=== PATIENT | female | born 1940 | race Caucasian/White ===

== ENCOUNTER 2017-08-26 18:40 | Emergency (ER) | payer MEDICAID ==
[~2017-08-26] VITALS: Ht 167.6 cm; Wt 77.0 kg
[~2017-08-26 18:40] MED LIST: AMLO2.5T45 PO; ASPI-1159 PO; COR3 PO; Fluticasone Propionate BOTHNSTRLS; LEVO250T2 PO; LISI-650 PO
[2017-08-26 19:23] LABS: BASOPHILS % 0.7 % (0.0-2.0); EOSINOPHILS % 3.5 % (0.0-5.0); HEMATOCRIT. 37.9 % (36.0-48.0); HEMOGLOBIN. 13.1 g/dL (12.0-16.0); LYMPHOCYTES % 31.6 % (20.0-50.0); MEAN CORPUSCULAR HEMOGLOBIN 31.5 pg (28.0-32.0); MEAN CORPUSCULAR VOLUME 91.3 fL (81.0-99.0); MEAN PLATELET VOLUME 8.4 fl (7.4-10.4); MONOCYTES % 6.9 % (2.0-8.0); NEUTROPHILS % 57.3 % (40.0-76.0); PLATELET 243 x1000/uL (130-400); RED BLOOD CELL COUNT 4.16 mill/uL (4.2-5.4)
[2017-08-26 19:29] LABS: CHLORIDE 100 mEq/L (98-107)
[2017-08-26 19:34] LABS: PARTIAL THROMBOPLASTIN TIME 24.3 sec (23.4-31.0); PROTHROMBIN TIME 10.9 sec (9.4-11.6)
[2017-08-26 19:52] LABS: CLARITY URINE CLEAR (CLEAR); COLOR URINE YELLOW (YELLOW); KETONES URINE NEGATIVE (NEGATIVE); LEUKOCYTE ESTERASE URINE 3+ (NEGATIVE); NITRITE URINE NEGATIVE (NEGATIVE); OCCULT BLOOD URINE NEGATIVE (NEGATIVE); PROTEIN URINE NEGATIVE (NEGATIVE); UROBILINOGEN URINE 0.2 E.U./dL (0.2-1.0)
[2017-08-26] MEDS ORDERED: MECLIZINE 25MG TABLET PO NR (20:00)
[2017-08-26 21:55] VITALS: BP 160/70
== END 2017-08-26 21:57 | disposition home or self-care (01) ==
LOC: ER 21:03
DX: N39.0 Urinary tract infection, site not specified (principal); E11.65 Type 2 diabetes mellitus with hyperglycemia; R42 Dizziness and giddiness; H53.8 Other visual disturbances; I10 Essential (primary) hypertension; R20.2 Paresthesia of skin; Z79.82 Long term (current) use of aspirin; R79.1 Abnormal coagulation profile
CPT/HCPCS: 36415; 70450; 71045; 80053; 81003; 83690; 83880; 84484; 85025; 85610; 85730; 87086; 93005; 99285; J8597

== ENCOUNTER 2018-10-30 15:54 | Inpatient (IN) | payer MEDICAID ==
[~2018-10-30] VITALS: Ht 167.6 cm; Wt 80.0 kg
[~2018-10-30 15:54] MED LIST changes: -ASPI-1159 PO; +ASPI-1393 PO
[2018-10-30] MEDS ORDERED: MORPHINE SULFATE 4 MG/ML CPJ (NOT FOR IM USE) IV STA (17:37)
[2018-10-30] MEDS ORDERED: SODIUM CHLORIDE 0.9% 1,000 ML IV ONE (17:37)
[2018-10-30] MEDS ORDERED: FAMOTIDINE 20MG/2ML VIAL IV STA (17:37)
[2018-10-30] MEDS ORDERED: ONDANSETRON HCL 4MG/2ML INJ IV STA (17:37)
[2018-10-30] MEDS ORDERED: HYDRALAZINE 20MG/ML VIAL IV ONE (17:45)
[2018-10-30 18:27] LABS: BASOPHILS % 0.7 % (0.0-2.0); EOSINOPHILS % 1.2 % (0.0-5.0); HEMATOCRIT. 34.1 % (36.0-48.0); HEMOGLOBIN. 12.1 g/dL (12.0-16.0); LYMPHOCYTES % 23.2 % (20.0-50.0); MEAN CORPUSCULAR HEMOGLOBIN 32.3 pg (28.0-32.0); MEAN PLATELET VOLUME 8.4 fl (7.4-10.4); MONOCYTES % 7.7 % (2.0-8.0); NEUTROPHILS % 67.2 % (40.0-76.0); PLATELET 239 x1000/uL (130-400); RED BLOOD CELL COUNT 3.75 mill/uL (4.2-5.4); RED CELL DISTRIBUTION WIDTH 12.5 % (11.6-14.6)
[2018-10-30 18:34] LABS: INR 1.1; PROTHROMBIN TIME 11.3 sec (9.6-11.0)
[2018-10-30 18:38] LABS: CHLORIDE 88 mEq/L (98-107)
[2018-10-30 18:42] LABS: ETHANOL BLOOD < 10 mg/dL
[2018-10-30 20:39] LABS: CLARITY URINE CLEAR (CLEAR); COLOR URINE YELLOW (YELLOW); KETONES URINE NEGATIVE (NEGATIVE); LEUKOCYTE ESTERASE URINE NEGATIVE (NEGATIVE); NITRITE URINE NEGATIVE (NEGATIVE); OCCULT BLOOD URINE NEGATIVE (NEGATIVE); PH URINE 5.5 (4.5-8.0); PROTEIN URINE NEGATIVE (NEGATIVE); SPECIFIC GRAVITY URINE 1.007 (1.005-1.030); UROBILINOGEN URINE 0.2 E.U./dL (0.2-1.0)
[2018-10-30] MEDS ORDERED: ONDANSETRON HCL 4MG/2ML INJ IV ONE (20:45)
[2018-10-30 21:43] VITALS: BP 151/62
[2018-10-30] MEDS ORDERED: DEXTROSE 50% WATER 50ML SYRINGE IV PRN (22:15)
[2018-10-30] MEDS ORDERED: HYDROCODONE/ACETAMINOPHEN 5/325MG TABLET PO PRN (22:15)
[2018-10-30 22:30] VITALS: BP 151/62
[2018-10-30] MEDS ORDERED: GLIP10TA10 PO (22:57)
[2018-10-30] MEDS ORDERED: LOSA1TAB37 PO ×2 (22:57)
[2018-10-30] MEDS ORDERED: METF-816 PO (22:57)
[2018-10-30] MEDS ORDERED: SIMV40TA5 PO (22:57)
[2018-10-31] VITALS (8 sets, daily range): BP systolic 129–193; BP diastolic 54–93
[2018-10-31 00:49] LABS: CREATINE KINASE MB FRACTION 2.8 ng/mL (0.5-3.6)
[2018-10-31] MEDS: BLOOD SUGAR DIAGNOSTIC STRIP TEST SCH ×4 (06:29→21:14)
[2018-10-31] MEDS: INSULIN LISPRO 100 UNITS/ML SUBCUT SCH ×4 (06:30→21:13)
[2018-10-31] MEDS: ENOXAPARIN 40MG/0.4ML SYR SUBCUT SCH (09:04)
[2018-10-31] MEDS: ASPIRIN 81MG TABLET PO SCH (09:04)
[2018-10-31] MEDS: LOSARTAN POTASSIUM 100 MG TABLET PO SCH (15:18)
[2018-10-31] MEDS: CLONIDINE 0.1MG TABLET PO PRN (16:39)
[2018-10-31] MEDS: METFORMIN HCL 500MG TABLET PO SCH (16:39)
[2018-11-01] VITALS: BP_SYST 126; BP_SYST 140; BP_DIAS 67; BP_DIAS 79
[2018-11-01 04:00] VITALS: BP 130/71
[2018-11-01] MEDS: BLOOD SUGAR DIAGNOSTIC STRIP TEST SCH ×3 (05:22→17:07)
[2018-11-01] MEDS: INSULIN LISPRO 100 UNITS/ML SUBCUT SCH ×3 (06:26→18:09)
[2018-11-01] MEDS: METFORMIN HCL 500MG TABLET PO SCH ×2 (06:26→18:09)
[2018-11-01 08:00] VITALS: BP 148/65
[2018-11-01] MEDS: LOSARTAN POTASSIUM 100 MG TABLET PO SCH (09:23)
[2018-11-01] MEDS: ENOXAPARIN 40MG/0.4ML SYR SUBCUT SCH (09:23)
[2018-11-01] MEDS: ASPIRIN 81MG TABLET PO SCH (09:23)
[2018-11-01 12:00] VITALS: BP 171/71
[2018-11-01] MEDS: CLONIDINE 0.1MG TABLET PO PRN (12:11)
[2018-11-01 16:00] VITALS: BP 118/61
[2018-11-01 18:46] VITALS: BP 118/61
[2018-11-05 04:15] LABS: OVA & PARASITE EXAM Final report (.)
== END 2018-11-01 19:00 | disposition home or self-care (01) | DRG 249 ==
LOC: ER 15:54 → EDBEDREQ 20:36 → 5WST 20:43 → EDBEDREQTM 20:50 → EDBEDREQ 20:50 → ENRESERV 21:07
PROVIDERS: ADMIT Internal Medicine; ATTEND Internal Medicine
DX: A08.4 Viral intestinal infection, unspecified (principal); E11.65 Type 2 diabetes mellitus with hyperglycemia; I10 Essential (primary) hypertension; E66.9 Obesity, unspecified; Z68.28 Body mass index [BMI] 28.0-28.9, adult; Z79.899 Other long term (current) drug therapy; Z79.82 Long term (current) use of aspirin; Z79.84 Long term (current) use of oral hypoglycemic drugs
CPT/HCPCS: 36415; 71045; 74176; 80320; 82550; 82553; 82962; 83880; 84484; 87015; 87045; 87177; 87209; 87427; 87449; 87493; 89055; 93005; 93306; 96374; 96375; 99285; J0360; J1650; J1815; J2270; J2405; J3490; J7030; G0480

== ENCOUNTER 2022-09-21 19:46 | Emergency (ER) | payer MEDICAID ==
[~2022-09-21 19:46] MED LIST changes: -AMLO2.5T45 PO; -ASPI-1393 PO; +ASPI-1497 PO; -Fluticasone Propionate BOTHNSTRLS; +INSU100I28 SQ; +LANC1COM12 SUBCON; -LEVO250T2 PO; -LISI-650 PO; +LOSA1TAB37 PO; +SIMV-46 PO
== END 2022-09-21 22:29 | disposition left against medical advice (07) ==
LOC: ER 19:46
DX: Z76.0 Encounter for issue of repeat prescription (principal); Z53.21 Procedure and treatment not carried out due to patient leaving prior to being seen by health care provider
CPT/HCPCS: 99281

== ENCOUNTER 2022-12-20 13:17 | Emergency (ER) | payer OTHER ==
[~2022-12-20] VITALS: Ht 167.6 cm; Wt 66.0 kg
[2022-12-20 13:46] VITALS: BP 111/67; TEMP 100.3; O2SAT 95
[2022-12-20 13:47] VITALS: PULSE 80; RESP 16
[2022-12-20 14:25] LABS: BASOPHILS % 0.2 % (0.0-2.0); HEMATOCRIT. 35.5 % (36.0-48.0); HEMOGLOBIN. 11.9 g/dL (12.0-16.0); LYMPHOCYTES % 8.5 % (20.0-50.0); MEAN CORPUSCULAR HEMOGLOBIN 30.4 pg (28.0-32.0); MEAN CORPUSCULAR HGB CONC 33.6 g/dL (31.0-37.0); MEAN CORPUSCULAR VOLUME 90.6 fL (81.0-99.0); MEAN PLATELET VOLUME 8.7 fl (7.4-10.4); MONOCYTES % 4.7 % (2.0-8.0); NEUTROPHILS % 86.6 % (40.0-76.0); PLATELET 176 x1000/uL (130-400); RED BLOOD CELL COUNT 3.92 mill/uL (4.2-5.4); RED CELL DISTRIBUTION WIDTH 13.3 % (11.6-14.6); WHITE BLOOD COUNT 12.2 x1000/uL (4.5-11.0)
[2022-12-20 14:28] LABS: CHLORIDE 98 mEq/L (98-107); INDEX HEMOLYSI 1 (1-3); INDEX ICTERIC 1 (1-4); INDEX LIPEMIC 1 (1-3); POTASSIUM 4.2 mEq/L (3.5-5.1); SODIUM 130 mEq/L (136-145)
[2022-12-20 14:37] LABS: ALANINE AMINOTRANSFERASE 16 IU/L (13-61); ALBUMIN 3.2 g/dL (3.4-5.0); ASPARTATE AMINOTRANSFERASE 12 IU/L (15-37); BILIRUBIN TOTAL 1.2 mg/dL (0.1-1.0); CALCIUM 8.7 mg/dL (8.5-10.1); CARBON DIOXIDE 25 mEq/L (21-32); CREATININE 1.6 mg/dL (0.6-1.3); GLUCOSE 301 mg/dL (70-105); PROTEIN TOTAL 7.6 g/dL (6.0-8.3); UREA NITROGEN BLOOD 37 mg/dL (7-21)
[2022-12-20 17:24] LABS: TROPONIN I HIGH SENSITIVITY 18 ng/L (<54)
== END 2022-12-20 19:57 | disposition home or self-care (01) ==
LOC: ER 13:17
DX: R42 Dizziness and giddiness (principal); I10 Essential (primary) hypertension
CPT/HCPCS: 36415; 71045; 80053; 82962; 84484; 85025; 93005; 99285

== ENCOUNTER 2023-10-23 07:16 | Emergency (ER) | payer OTHER ==
[~2023-10-23] VITALS: Ht 167.6 cm; Wt 77.1 kg
[2023-10-23 07:30] VITALS: O2SAT 96
[2023-10-23 08:57] LABS: CHLORIDE 104 mEq/L (98-107); POTASSIUM 4.4 mEq/L (3.5-5.1); SODIUM 138 mEq/L (136-145)
[2023-10-23 08:58] LABS: CALCIUM 9.1 mg/dL (8.7-10.4); CARBON DIOXIDE 24 mEq/L (21-32)
[2023-10-23 09:01] LABS: BASOPHILS % 0.9 % (0.0-2.0); EOSINOPHILS % 5.1 % (0.0-5.0); HEMATOCRIT. 36.7 % (36.0-48.0); HEMOGLOBIN. 12.3 g/dL (12.0-16.0); LYMPHOCYTES % 26.5 % (20.0-50.0); MEAN CORPUSCULAR HEMOGLOBIN 31.5 pg (28.0-32.0); MEAN CORPUSCULAR HGB CONC 33.6 g/dL (31.0-37.0); MEAN CORPUSCULAR VOLUME 93.8 fL (81.0-99.0); MEAN PLATELET VOLUME 9.1 fl (7.4-10.4); MONOCYTES % 7.6 % (2.0-8.0); NEUTROPHILS % 59.9 % (40.0-76.0); PARTIAL THROMBOPLASTIN TIME 24.2 sec (23.4-31.0); PLATELET 193 x1000/uL (130-400); PROTHROMBIN TIME 10.9 sec (9.6-11.0); RED BLOOD CELL COUNT 3.92 mill/uL (4.2-5.4); RED CELL DISTRIBUTION WIDTH 11.9 % (11.6-14.6); WHITE BLOOD COUNT 5.7 x1000/uL (4.5-11.0)
[2023-10-23 09:03] LABS: CREATININE 1.6 mg/dL (0.6-1.0); GLUCOSE 287 mg/dL (70-105); UREA NITROGEN BLOOD 34 mg/dL (9-23)
[2023-10-23 09:04] LABS: TROPONIN I HIGH SENSITIVITY 6 ng/L (3.0-34)
[2023-10-23 09:26] LABS: CLARITY URINE CLEAR (CLEAR); COLOR URINE YELLOW (YELLOW); GLUCOSE URINE 3+ (NEGATIVE); KETONES URINE NEGATIVE (NEGATIVE); LEUKOCYTE ESTERASE URINE TRACE (NEGATIVE); NITRITE URINE NEGATIVE (NEGATIVE); OCCULT BLOOD URINE NEGATIVE (NEGATIVE); PH URINE 5.5 (4.5-8.0); PROTEIN URINE NEGATIVE (NEGATIVE); SPECIFIC GRAVITY URINE 1.024 (1.005-1.030); UROBILINOGEN URINE 0.2 E.U./dL (0.2-1.0)
[2023-10-23 09:33] LABS: BACTERIA URINE 1+; RBC URINE 0-2 /hpf (0-2); SQUAMOUS EPITHELIAL CELL URINE 1+ /lpf (RARE/1+); WBC URINE 15-25 /hpf (0-2); YEAST URINE NONE SEEN
[2023-10-23 12:04] LABS: TROPONIN I HIGH SENSITIVITY 5 ng/L (3.0-34)
[2023-10-23] MEDS: SODIUM CHLORIDE 0.9% 1,000 ML IV ONE (12:56)
[2023-10-23] MEDS: CEFTRIAXONE 1GM/50ML 50 ML IV ONE (12:56)
[2023-10-23] MEDS ORDERED: IOHEXOL-350 100 ML BOTTLE ONE (14:44)
[2023-10-23] MEDS ORDERED: CEFP200T13 MT (15:19)
[2023-10-23 16:23] VITALS: BP 172/62; PULSE 57; RESP 17; TEMP 97.9
== END 2023-10-23 16:29 | disposition home or self-care (01) ==
LOC: ER 07:16
DX: R07.9 Chest pain, unspecified (principal); N39.0 Urinary tract infection, site not specified; E11.9 Type 2 diabetes mellitus without complications; I10 Essential (primary) hypertension; Z79.899 Other long term (current) drug therapy
CPT/HCPCS: 80048; 81003; 83880; 83690; 85025; 85610; 85730; 87086; 87186; 84484; 87077; 36415; 74174; 71045; 71275; 93005; 96365; 99285; Q9967; J0696; J7030; Z7610 ×2